=== PATIENT | male | born 2000 | race Two or more races ===

== ENCOUNTER 2024-01-27 15:02 | Emergency (ER) | payer OTHER ==
[~2024-01-27] VITALS: Ht 167.6 cm; Wt 75.0 kg
[2024-01-27 15:40] VITALS: TEMP 97.9
[2024-01-27 18:20] LABS: APPEARANCE,URINE CLEAR (CLEAR); BILIRUBIN,URINE NEGATIVE (NEGATIVE); COLOR,URINE LIGHT YELLOW (YELLOW); GLUCOSE, URINE (UA) NEGATIVE (NEGATIVE); KETONES,URINE NEGATIVE (NEGATIVE); LEUKOCYTE ESTERASE ,URINE NEGATIVE (NEGATIVE); NITRATE,URINE NEGATIVE (NEGATIVE); OCCULT BLOOD,URINE NEGATIVE (NEGATIVE); PROTEIN,URINE NEGATIVE (NEGATIVE); SPECIFIC GRAVITIY, URINE 1.014 (1.003-1.030); UROBILINOGEN,URINE <=1.0 mg/dL (<=1.0)
[2024-01-27 18:30] VITALS: BP 146/77; PULSE 78; RESP 18
[2024-01-27] MEDS: KETOROLAC TROMETHAMINE 30 MG/ML VIAL IM ONE (18:43)
== END 2024-01-27 18:58 | disposition home or self-care (01) ==
LOC: EMS 15:02
DX: I86.1 Scrotal varices (principal)
CPT/HCPCS: 99285; 81003; 76870; 96372; J1885